=== PATIENT | male | born 1935 | race Caucasian/White ===

== ENCOUNTER → 2017-11-27 | Outpatient (CLI) | payer MEDICARE ==
--- NOTE | 2017-11-27 17:27 | XR ---
EXAMINATION TYPE: XR chest 2V DATE OF EXAM: 11/27/2017 COMPARISON: NONE INDICATION: Chronic obstructive pulmonary disease TECHNIQUE: Frontal and lateral views of the chest are obtained. FINDINGS: The heart size is normal. The pulmonary vasculature is normal. The lungs are clear. Pacemaker overlies left chest. IMPRESSION: 1. No acute pulmonary process.
== END | disposition home or self-care (01) ==
LOC: RADXRMAIN 11:53
PROVIDERS: ATTEND Family Medicine
DX: J44.1 Chronic obstructive pulmonary disease with (acute) exacerbation (principal)
CPT/HCPCS: 71046

== ENCOUNTER 2018-05-29 00:59 | Inpatient (IN) | payer MEDICARE ==
[2018-05-29] MEDS ORDERED: ACETAMINOPHEN TAB 325 MG TAB PO PRN (09:23)
[2018-05-29] MEDS ORDERED: ALPRAZolam 0.25 MG TAB PO PRN (11:45)
[2018-05-29 11:46] LABS: Basophils % (A) 0 %; Eosinophils % (A) 0 %; HCT 41.7 % (39.0-53.0); HGB 13.5 gm/dL (13.0-17.5); Lymphocytes # (A) 0.5 k/uL (1.0-4.8); Lymphocytes % (A) 9 %; MCH 31.5 pg (25.0-35.0); MCHC 32.3 g/dL (31.0-37.0); MCV 97.4 fL (80.0-100.0); Mean Platelet Volume 6.5; Monocytes # (A) 0.1 k/uL (0-1.0); Monocytes % (A) 1 %; Neutrophils # (A) 5.3 k/uL (1.3-7.7); Neutrophils % (A) 89 %; Platelet Count 302 k/uL (150-450); RBC 4.29 m/uL (4.30-5.90); RDW 14.8 % (11.5-15.5); WBC 5.9 k/uL (3.8-10.6)
[2018-05-29 12:08] LABS: Calcium 8.9 mg/dL (8.4-10.2); Potassium 3.8 mmol/L (3.5-5.1); Total Bilirubin 0.6 mg/dL (0.2-1.3); Total Protein 7.6 g/dL (6.3-8.2)
[2018-05-29 12:40] LABS: Cholesterol 171 mg/dL (<200); HDL Cholesterol 43 mg/dL (40-60); LDL Cholesterol,Calculated 113 mg/dL (0-99); Triglycerides 75 mg/dL (<150)
[2018-05-29] MEDS: LISINOPRIL 20 MG TAB PO SCH ×2 (12:51→19:30)
[2018-05-29] MEDS: amLODIPine 10 MG TAB PO SCH (12:51)
[2018-05-29] MEDS: FUROSEMIDE 10 MG/ML 2 ML VIAL IV SCH ×2 (12:51→19:30)
[2018-05-29] MEDS: ALLOPURINOL 100 MG TAB PO SCH (12:51)
--- NOTE | 2018-05-29 13:38 | CONS ---
CONSULTATION Mr. Armijo is an 82-year-old male followed by Dr. Balbuena, has a history of coronary artery disease, status post bypass grafting about 15 years ago, history of permanent pacemaker implantation for bradycardia, who presented to the emergency room at [facility] with progressive dyspnea. He is having those symptoms for the last few months, but much worse yesterday. He had no associated rest dyspnea or PND orthopnea. He denies any weight gain. He denies any chest discomfort. He denies any dizziness, palpitation, or syncope. He has not noted any significant peripheral edema. He has been diagnosed with bronchitis in the past. He has occasional cough, that is not persistent, has no wheezing. He has no history of smoking in a long time. He has not been told that he has heart failure in the past nor history of congestive heart failure. He has no history of myocardial infarction and his bypass was done because of symptoms of angina pectoris. Prior to the bypass, he has underwent stenting, but because of restenosis, he underwent a triple bypass at [facility]. His coronary risk factors are positive for hypertension, hyperlipidemia. He is nondiabetic, nonsmoker . MEDICATIONS: His medications include pravastatin 40 mg daily, Proscar 5 mg daily, aspirin once a day, Coreg 12.5 mg twice a day, amlodipine 10 mg daily, lisinopril 20 mg twice a day. REVIEW OF SYSTEMS: RESPIRATORY SYSTEM: He has dyspnea, cough. He was told he has chronic bronchitis in the past, but no recent wheezing. GI SYSTEM: No recent GI bleeding. No peptic ulcer disease. SYSTEM: No dysuria or hematuria. NERVOUS SYSTEM: No stroke or seizure. PHYSICAL EXAMINATION: He is an 82-year-old male, alert, oriented, in no apparent distress. Blood pressure 161/80 with the heart rate in the 60s. HEAD: Normocephalic. EYES: Sclerae anicteric. NECK: Good upstroke. No bruit. LUNGS: No wheezes or rales appreciated. HEART: Regular rate and rhythm. S1, S2. No S3 with systolic murmur heard at the base, ejection type. No diastolic murmur. No rub. ABDOMEN: Soft, nontender. Positive bowel sounds. No organomegaly. EXTREMITIES: Trace edema more on the left ankle. LAB DATA: Lab data revealed a hemoglobin 13.5, BUN and creatinine of 22 and 1.0. His NT proBNP is 4210. He had an EKG that showed a sinus mechanism, first-degree AV block, T-wave inversion in V1 and V2 with nonspecific ST-T wave changes and frequent PACs. His troponin at [place] was 0.074 and 0.049. IMPRESSION: 1. Symptoms of progressive dyspnea with findings suggestive of congestive heart failure. On examination, I do not hear significant fluid. He has no significant peripheral edema. According to him, he feels much better since his presentation to the emergency room. 2. History of coronary artery disease, status post coronary artery bypass grafting. 3. Mild elevation of troponin could represent a type 2 event. 4. History of hypertension. 5. Hyperlipidemia. RECOMMENDATION: Patient will be continued on IV diuretics. I will obtain echocardiogram with Doppler. We will follow his cardiac enzymes. Depending on the results of testing, further recommendation will be made. Patient may benefit from a myocardial perfusion imaging, but the timing depends on his progress and results of his testing. Thank you for this consult. We will follow with you. MMODL / IJN: [id number] /
--- NOTE | 2018-05-29 14:11 | P.HPIM ---
History of Present Illness H&P Date: 05/29/18 Chief Complaint: Shortness of breath This is a 82-year-old male, patient of Dr. Azul. He has a known past medical history of coronary artery disease with previous triple bypass surgery about 15 years ago, essential hypertension, hyperlipidemia, pacemaker placement for bradycardia. Patient presents to the emergency room with complaints of worsening shortness of breath. He initially had been seen by his PCP earlier this week and was told to follow-up with pulmonary service in regards to his increase in shortness of breath and thought that it may be related to chronic bronchitis. Patient does have a history of smoking and had quit several years ago. However, patient's symptoms continued to worsen. He noticed he was having difficulty walking to the mailbox. And then even during the night getting up to the bathroom and acute short of breath. Patient did have evidence of some orthopnea. He required more pillows at night to sleep. He denies any weight gain or lower extremity edema. Denies any history of CHF. Patient did go to [facility] yesterday and was brought over to [place] for further evaluation. At that point he was told that he had some congestive heart failure. BNP elevated at 4210. Patient is been started on IV Lasix. Chest x-ray and echo have been ordered. Cardiology has been consulted. Patient denies any chest pain. Denies any nausea vomiting. Denies any bowel movement changes or urinary symptoms. Denies any persistent cough. Denies fever or chills or sweats. Review of Systems Please refer to HPI otherwise unremarkable Past Medical History Past Medical History: Coronary Artery Disease (CAD), Hyperlipidemia, Hypertension, Prostate Disorder Additional Past Medical History / Comment(s): Thoracic aortic aneurysm and abdominal aortic aneurysm followed by Dr. leija. Has ultrasound completed every 6 months. Patient reports size to be around 4 cm History of Any Multi-Drug Resistant Organisms: None Reported Past Surgical History: Appendectomy, Coronary Bypass/CABG, Heart Catheterization With Stent, Pacemaker Additional Past Surgical History / Comment(s): CABG 2002 Past Anesthesia/Blood Transfusion Reactions: No Reported Reaction Date of Last Stent Placement:: unknown Type of Cardiac Device: Permanent Pacemaker Device Placement Date:: 2015 Past Psychological History: No Psychological Hx Reported Smoking Status: Former smoker Additional Drug Use History / Comment(s): quit smoking 20 years ago, smoked 1-2 PPD - Past Family History Father Family Medical History: CVA/TIA Mother Family Medical History: Osteoarthritis (OA) Medications and Allergies Home Medications Medication Instructions Recorded Confirmed Type Allopurinol [Zyloprim] 50 mg PO HS 05/29/18 05/29/18 History Aspirin 162 mg PO HS 05/29/18 05/29/18 History Carvedilol [Coreg*] 12.5 mg PO BID 05/29/18 05/29/18 History Finasteride [Proscar] 5 mg PO HS 05/29/18 05/29/18 History Lisinopril [Zestril] 20 mg PO BID 05/29/18 05/29/18 History [place]-3 Fatty Acids/Fish Oil [Fish 1 cap PO DAILY 05/29/18 05/29/18 History Oil 1,000 mg Softgel] Pravastatin Sodium [Pravachol] 40 mg PO HS 05/29/18 05/29/18 History amLODIPine [Norvasc] 10 mg PO DAILY 05/29/18 05/29/18 History Allergies Allergy/AdvReac Type Severity Reaction Status Date / Time No Known Allergies Allergy Verified 05/29/18 09:17 Physical Exam Vitals: Vital Signs Temp Pulse Resp BP Pulse Ox 05/29/18 10:15 97.0 F L 65 18 161/84 98 Intake and Output 05/28/18 05/29/18 05/29/18 22:59 06:59 14:59 Intake Total 120 Balance 120 Intake: Oral 120 Other: Weight 96.615 kg 96.615 kg Head normocephalic Neck supple Lungs diminished bilaterally Heart regular rate and rhythm S1-S2, no rub or gallop Abdomen is soft nontender nondistended positive bowel sounds no hepatosplenomegaly Extremities no edema Neuro alert and orientated to 3 Results CBC & Chem 7: 05/29/18 11:35 05/29/18 11:35 Labs: Abnormal Lab Results - Last 24 Hours (Table) 05/29/18 05/29/18 05/29/18 Range/Units 11:35 11:35 11:35 RBC 4.29 L (4.30-5.90) m/uL Lymphocytes # 0.5 L (1.0-4.8) k/uL Carbon Dioxide 20 L (22-30) mmol/L BUN 22 H (9-20) mg/dL Glucose 235 H (74-99) mg/dL Troponin I (0.000-0.034) ng/mL LDL Cholesterol, Calc 113 H (0-99) mg/dL 05/29/18 Range/Units 11:35 RBC (4.30-5.90) m/uL Lymphocytes # (1.0-4.8) k/uL Carbon Dioxide (22-30) mmol/L BUN (9-20) mg/dL Glucose (74-99) mg/dL Troponin I 0.093 H* (0.000-0.034) ng/mL LDL Cholesterol, Calc (0-99) mg/dL Thrombosis Risk Factor Assmnt - Choose All That Apply Each Risk Factor Represents 3 Points: Age 75 years or older Thrombosis Risk Factor Assessment Total Risk Factor Score: 3 Thrombosis Risk Factor Assessment Level: Moderate Risk Assessment and Plan Assessment: 1. Acute congestive heart failure exacerbation: Continue with IV Lasix 20 mg every 12 hours. Elevated BNP on admission. Patient seen by cardiology. Echo and chest x-ray have been ordered. 2. Mildly elevated troponins could represent a type II event per cardiology. Continue to monitor troponins 3. Essential hypertension 4. Hyperlipidemia 5. Previous history of smoking 6. Coronary artery disease with coronary artery bypass grafting GI prophylaxis Pepcid and DVT prophylaxis Lovenox Time with Patient: Greater than 30 (Greater than 60% of the total time spent in counseling and coordination of care.I performed an examination of the patient and discussed their management with the physician Collar Pointer. I have reviewed the Physician Collar Pointer's notes and agree with the documented findings and plan of care)
--- NOTE | 2018-05-29 15:04 | XR ---
EXAMINATION TYPE: XR chest 2V DATE OF EXAM: 05/29/2018 COMPARISON: 11/27/2017 HISTORY: Shortness of breath TECHNIQUE: Frontal and lateral views of the chest are obtained. FINDINGS: Scattered senescent parenchymal changes noted. Hyperinflation compatible with COPD. No evidence for infiltrate. No evidence for atelectasis. Heart size is stable. Mediastinal structures are stable and grossly unremarkable. No evidence for hilar prominence. Degenerative changes dorsal spine. IMPRESSION: 1. No evidence for acute pulmonary disease.
[2018-05-29] MEDS: CARVEDILOL 12.5 MG TAB PO SCH (17:28)
[2018-05-29] MEDS: ENOXAPARIN 40 MG/0.4 ML SYRINGE SQ SCH (17:28)
[2018-05-29] MEDS ORDERED: FINASTERIDE 5 MG TAB PO SCH (21:00)
[2018-05-29] MEDS ORDERED: PRAVASTATIN SODIUM 40 MG TAB PO SCH (21:00)
[2018-05-29] MEDS ORDERED: ALLOPURINOL 100 MG TAB PO SCH (21:00)
[2018-05-29] MEDS ORDERED: ASPIRIN 81 MG PO SCH (21:00)
[2018-05-30 05:04] LABS: Basophils % (A) 0 %; Eosinophils % (A) 0 %; HCT 39.6 % (39.0-53.0); HGB 12.7 gm/dL (13.0-17.5); Lymphocytes # (A) 0.7 k/uL (1.0-4.8); Lymphocytes % (A) 7 %; MCH 31.2 pg (25.0-35.0); MCHC 32.1 g/dL (31.0-37.0); MCV 97.3 fL (80.0-100.0); Mean Platelet Volume 6.2; Monocytes # (A) 0.4 k/uL (0-1.0); Monocytes % (A) 5 %; Neutrophils # (A) 8.3 k/uL (1.3-7.7); Neutrophils % (A) 87 %; Platelet Count 298 k/uL (150-450); RBC 4.07 m/uL (4.30-5.90); RDW 14.5 % (11.5-15.5); WBC 9.5 k/uL (3.8-10.6)
[2018-05-30 05:14] LABS: Albumin 3.6 g/dL (3.5-5.0); Calcium 8.5 mg/dL (8.4-10.2); Potassium 4.1 mmol/L (3.5-5.1); Total Bilirubin 0.4 mg/dL (0.2-1.3); Total Protein 6.9 g/dL (6.3-8.2)
[2018-05-30 08:18] VITALS: RESP 16
[2018-05-30] MEDS: LISINOPRIL 20 MG TAB PO SCH (08:20)
[2018-05-30] MEDS: amLODIPine 10 MG TAB PO SCH (08:20)
[2018-05-30] MEDS: ENOXAPARIN 40 MG/0.4 ML SYRINGE SQ SCH (08:20)
[2018-05-30] MEDS: FUROSEMIDE 10 MG/ML 2 ML VIAL IV SCH (08:20)
[2018-05-30] MEDS: ALLOPURINOL 100 MG TAB PO SCH (08:21)
[2018-05-30] MEDS ORDERED: FAMOTIDINE 20 MG TAB PO SCH (09:00)
[2018-05-30] MEDS ORDERED: NON-FORMULARY DRUG (Omega-3 Fatty Acids/Fish Oil [Fish Oil 1,000 Mg Softgel] 1 CAP) PO SCH (09:00)
--- NOTE | 2018-05-30 09:28 | ECHOF ---
Referral Reason:chf MEASUREMENTS -------- HEIGHT: 180.3 cm WEIGHT: 96.6 kg BP: 161/84 RVIDd: 3.5 cm (< 3.3) IVSd: 1.3 cm (0.6 - 1.1) LVIDd: 5.1 cm (3.9 - 5.3) LVPWd: 1.3 cm (0.6 - 1.1) IVSs: 2.0 cm LVIDs: 3.3 cm LVPWs: 1.6 cm LA Diam: 4.3 cm (2.7 - 3.8) LAESV Index (A-L): 30.63 ml/m Ao Diam: 3.9 cm (2.0 - 3.7) AV Cusp: 2.6 cm (1.5 - 2.6) MV EXCURSION: 20.282 mm (> 18.000) MV EF SLOPE: 103 mm/s (70 - 150) EPSS: 0.6 cm RAP: 5.00 mmHg RVSP: 21.84 mmHg FINDINGS -------- Paced rhythm. This was a technically adequate study. The left ventricular size is normal. There is mild concentric left ventricular hypertrophy. Overa ll left ventricular systolic function is normal with, an EF between 55 - 60 %. The right ventricle is mildly enlarged. LA is midly dilated 29-33ml/m2. The right atrium is normal in size. There is mild aortic valve sclerosis. Mild mitral annular calcification present. There is trace to mild mitral regurgitation. Mild tricuspid regurgitation present. Right ventricular systolic pressure is normal at < 35 mmHg. Moderate pulmonic regurgitation. The aortic root is dilated measuring 3.9cm. Normal inferior vena cava with normal inspiratory collapse consistent with estimated right atrial pre ssure of 5 mmHg. There is no pericardial effusion. CONCLUSIONS -------- 1. Paced rhythm. 2. This was a technically adequate study. 3. The left ventricular size is normal. 4. There is mild concentric left ventricular hypertrophy. 5. Overall left ventricular systolic function is normal with, an EF between 55 - 60 %. 6. The right ventricle is mildly enlarged. 7. LA is midly dilated 29-33ml/m2. 8. The right atrium is normal in size. 9. There is mild aortic valve sclerosis. 10. Mild mitral annular calcification present. 11. There is trace to mild mitral regurgitation. 12. Mild tricuspid regurgitation present. 13. Right ventricular systolic pressure is normal at < 35 mmHg. 14. Moderate pulmonic regurgitation. 15. The aortic root is dilated measuring 3.9cm. 16. Normal inferior vena cava with normal inspiratory collapse consistent with estimated right atrial pressure of 5 mmHg. 17. There is no pericardial effusion. REGULATORY AUDITOR: Aga Radford RDCS
[2018-05-30] MEDS: CARVEDILOL 12.5 MG TAB PO SCH ×2 (10:15→11:58)
[2018-05-30 11:54] VITALS: PULSE 82; TEMP 96.8
--- NOTE | 2018-05-30 12:10 | PN ---
PROGRESS NOTE Mr. Armijo is an 82-year-old male with a known history of coronary artery disease, status post coronary artery bypass grafting who presented with symptoms of progressive dyspnea and had an elevation of the BNP. He is feeling much better today, his breathing is better. He has been walking without difficulty. He had an echocardiogram revealed preserved left ventricular size and systolic function with no significant valvular disease. He denies any palpitation. No syncope. He continues to be on amlodipine 10 mg daily, aspirin once a day, Coreg 12.5 mg twice a day, furosemide 20 mg IV q.12 hours and Zestril 20 mg twice a day, pravastatin 40 mg daily. PHYSICAL EXAMINATION: Blood pressure running in the 130s with a heart rate in the 70s. LUNGS: Clear. HEART: Regular rate and rhythm. S1, S2. No S3. No rub with a systolic murmur. ABDOMEN: Soft, nontender. EXTREMITIES: No edema. LAB DATA: Revealed BUN and creatinine 34 and 1.21, potassium 4.1, hemoglobin 12.7. IMPRESSION: 1. Episode of congestive heart failure with preserved systolic function. 2. Status post coronary artery bypass grafting. 3. Hypertension. 4. Hyperlipidemia. RECOMMENDATION: From the cardiac standpoint, he should be able to be discharged home today. I will switch him to oral diuretics. He is anxious to go home because of the graduation of his granddaughter. He will follow up with Dr. Balbuena in a week. MMADILIAL / ANGELN: [id number] /
[2018-05-30 12:47] VITALS: BP 174/81
--- NOTE | 2018-05-30 13:26 | P.DS ---
Providers Date of admission: 05/29/18 01:30 Expected date of discharge: 05/30/18 Attending physician: Fernandez Benjamin Consults: 05/29/18 09:26 Consult Physician Routine Consulting Provider: Vin Daily Consult Reason/Comments: New onset CHF Do you want consulting provider notified?: Yes Primary care physician: Belen Azul Hospital Course: Discharge diagnosis 1. Acute diastolic congestive heart failure exacerbation: Elevated BNP on admission. Patient seen by cardiology. Echo showing an EF of 55-60% moderate pulmonary regurgitation. Chest x-ray no acute pulmonary process. Cardiology has switch patient over to oral Lasix 20 mg twice a day 2. Mildly elevated troponins could represent a type II event per cardiology. 3. Essential hypertension 4. Hyperlipidemia 5. Previous history of smoking 6. Coronary artery disease with coronary artery bypass grafting Hospital course This is a 82-year-old male, patient of Dr. Azul. He has a known past medical history of coronary artery disease with previous triple bypass surgery about 15 years ago, essential hypertension, hyperlipidemia, pacemaker placement for bradycardia. Patient presents to the emergency room with complaints of worsening shortness of breath. He initially had been seen by his PCP earlier this week and was told to follow-up with pulmonary service in regards to his increase in shortness of breath and thought that it may be related to chronic bronchitis. Patient does have a history of smoking and had quit several years ago. However, patient's symptoms continued to worsen. He noticed he was having difficulty walking to the mailbox. And then even during the night getting up to the bathroom and acute short of breath. Patient did have evidence of some orthopnea. He required more pillows at night to sleep. He denies any weight gain or lower extremity edema. Denies any history of CHF. Patient did go to [facility] yesterday and was brought over to [place] for further evaluation. At that point he was told that he had some congestive heart failure. BNP elevated at 4210. Patient is been started on IV Lasix. Chest x-ray and echo have been ordered. Cardiology has been consulted. Patient denies any chest pain. Denies any nausea vomiting. Denies any bowel movement changes or urinary symptoms. Denies any persistent cough. Denies fever or chills or sweats. Patient's shortness of breath has improved. He is off of oxygen. He has been up and walking the hallways with no shortness of breath. Symptoms improved with the IV Lasix. As stated above echo showed an EF of 55-60%. And cardiology has cleared him for discharge and place him on oral Lasix 20 mg twice a day. Patient follow-up with Dr. Balbuena in 1 week. Follow up with his PCP in 1 week. He is medically stable for discharge. Please refer to chart for any further details. I performed an examination of the patient and discussed their management with the physician Global Manager. I have reviewed the Physician Global Manager's notes and agree with the documented findings and plan of care Plan - Discharge Summary Discharge Rx Participant: No New Discharge Prescriptions: New Furosemide [Lasix] 20 mg PO BID #60 tab Continue Carvedilol [Coreg*] 12.5 mg PO BID Aspirin 162 mg PO HS Allopurinol [Zyloprim] 50 mg PO HS amLODIPine [Norvasc] 10 mg PO DAILY Pravastatin Sodium [Pravachol] 40 mg PO HS Lisinopril [Zestril] 20 mg PO BID Finasteride [Proscar] 5 mg PO HS [place]-3 Fatty Acids/Fish Oil [Fish Oil 1,000 mg Softgel] 1 cap PO DAILY Discharge Medication List Allopurinol [Zyloprim] 50 mg PO HS 05/29/18 [History] Aspirin 162 mg PO HS 05/29/18 [History] Carvedilol [Coreg*] 12.5 mg PO BID 05/29/18 [History] Finasteride [Proscar] 5 mg PO HS 05/29/18 [History] Lisinopril [Zestril] 20 mg PO BID 05/29/18 [History] [place]-3 Fatty Acids/Fish Oil [Fish Oil 1,000 mg Softgel] 1 cap PO DAILY [History] Pravastatin Sodium [Pravachol] 40 mg PO HS 05/29/18 [History] amLODIPine [Norvasc] 10 mg PO DAILY 05/29/18 [History] Furosemide [Lasix] 20 mg PO BID #60 tab 05/30/18 [Rx] Follow up Appointment(s)/Referral(s): Andre Balbuena MD [STAFF PHYSICIAN] - 1 Week Belen Azul MD [Primary Care Provider] - 06/05/18 2:15 pm () Activity/Diet/Wound Care/Special Instructions: Diet: cardiac Activity: as tolerated Discharge Disposition: HOME SELF-CARE
[2018-05-30 13:40] VITALS: BMI 29.0
--- NOTE | 2018-05-30 13:43 | CDI ---
Last Revision, October 2017 Documentation Clarification Form Date: 05/30/2018 12:00:00 AM From: Emily Infante RN, CCDS Admit Date: 05/29/2018 1:30:00 AM Patient Name: Landon Armijo Visit Number: [id number] Discharge Date: ATTENTION: The Clinical Documentation Specialists (CDI) and [facility] Coding Staff appreciate your assistance in clarifying documentation. Please respond to the clarification below the line at the bottom and electronically sign. The CDI & [facility] Coding staff will review the response and follow-up if needed. Please note: Queries are made part of the Legal Health Record. If you have any questions, please contact the author of this message via ITS. Dr. Hellen Brown Mild elevation of troponin could represent a type 2 event is documented in your consult on 05/29/18. Patient history/risk factors: Coronary artery disease, Hypertension, Hyperlipidemia Clinical Indicators: He complains of progressive dyspnea with cough. Lab findings: Troponin 0.074, 0.049, BNP 4210 EKG: sinus mechanism, first-degree AV block, T-wave inversion in V1 and V2 with nonspecific ST-T wave changes and frequent PAC's ECHO: EF 55-60 % Vital Signs: 161/84 65 18 97.0 98 % 2/L Treatment: Monitor cardiac enzymes Lasix IV Coreg PO In your professional opinion, can you please further clarify type II event and underlying cause? X Type II Myocardial Infarction Other, please specify Unable to determine Please continue to document in your progress notes and discharge summary in order to capture severity of illness and risk of mortality. Include clinical findings that support your diagnosis. MTDD
[2018-05-30] MEDS ORDERED: FUROSEMIDE 20 MG TAB PO SCH (21:00)
== END 2018-05-30 14:35 | disposition home or self-care (01) | DRG 282 ==
LOC: EC 00:59 → 6SEL 01:30
PROVIDERS: ADMIT Internal Medicine; ATTEND Internal Medicine
DX: I11.0 Hypertensive heart disease with heart failure (principal); I21.A1 Myocardial infarction type 2; I50.33 Acute on chronic diastolic (congestive) heart failure; E78.5 Hyperlipidemia, unspecified; I25.10 Atherosclerotic heart disease of native coronary artery without angina pectoris; I37.1 Nonrheumatic pulmonary valve insufficiency; Z95.1 Presence of aortocoronary bypass graft; Z95.0 Presence of cardiac pacemaker; Z79.82 Long term (current) use of aspirin; Z79.899 Other long term (current) drug therapy; Z87.891 Personal history of nicotine dependence
CPT/HCPCS: 71046; 80053; 80061; 83880; 84484; 85025; 93306; 99285

== ENCOUNTER → 2018-09-19 | Day surgery (SDC) | payer MEDICARE ==
[2018-09-16 15:42] VITALS: BMI 26.0
[~2018-09-19] MED LIST: ALPRAZolam 0.25 MG TAB PO PRN; ALPRAZolam 0.5 MG TAB PO PRN; ASPIRIN 325 MG TAB PO STA; ATORVASTATIN 80 MG TAB PO STA; IOPAMIDOL-370 125ML BTL INJ ONE; IV FLUID CONTINUATION 950 ML IV ONE; LIDOCAINE 1% INJ 10MG/ML (20 ML MDV) ONE; LIDOCAINE 1% INJ 10MG/ML (20 ML MDV) SQ ONE; MIDAZOLAM 2 MG/2 ML VIAL ONE; NITROGLYCERIN SL TABS 0.4 MG TAB SUBLINGUAL PRN; RX INFO: IV CONTRAST WAS GIVEN 1 EACH MISC MISCELLANE PRN; SODIUM CHLORIDE 0.9% 1,000 ML IV SCH; SODIUM CHLORIDE 0.9% 1,000 ML in EMPTY BAG 1 BAG IV ONE; amLODIPine 2.5 MG TAB PO STA; fentaNYL (PF) 50 MCG/ML 2 ML AMP IV ONE; fentaNYL (PF) 50 MCG/ML 2 ML AMP ONE
[2018-09-19 08:44] VITALS: TEMP 98.3
[2018-09-19] MEDS: MIDAZOLAM 2 MG/2 ML VIAL IVP ONE ×2 (09:27→09:58)
--- NOTE | 2018-09-19 10:41 | P.CARDCATH ---
Date of Procedure: 09/19/18 Preoperative Diagnosis: Positive stress test and episodes of nonsustained V. tach Postoperative Diagnosis: Stable coronary artery disease with patent BLOOD to the LAD and vein graft to the circumflex. Right coronary artery is chronically occluded with documented occlusion of the graft to the RCA Description of Procedure: HISTORY: This is a 82-year-old gentleman with history of venous bypass surgery with the BLOOD graft to the LAD, vein graft to the circumflex and vein graft to the right coronary artery. This patient is being followed by Dr. Balbuena. Patient apparently had episodes of nonsustained V. tach and a recent stress test showed some ischemia in the apical region. Patient is advised to have a cardiac catheterization CONSENT:I have discussed the risks, benefits and alternative therapies for the above-mentioned procedure and for both sedation/analgesia as well as necessary blood product administration, if indicated, as they pertain to this patient. The patient has indicated understanding and acceptance of the risks and procedures discussed. PROCEDURE: Patient was brought to the lab in a fasting state. Patient was given some IV sedation. The right groin is infiltrated with lidocaine and right femoral artery was entered using Seldinger technique. A 6-[place]ron[place] catheter was left in place and selective coronary arteriography and left ventriculography was performed. Patient tolerated the procedure well. Femoral angiogram was performed and Angio-Seal was applied for hemostasis. No immediate complications were noted and patient was transferred to [facility] in a stable condition Conscious Sedation: Versed 1.5mg Fentanyl 50 g Duration 25minutes HEMODYNAMICS: The aortic pressure was about 150/70. Left ankle end-diastolic pressure is about a 4-8. There was no gradient across the aortic valve SELECTIVE CORONARY ARTERIOGRAPHY: LEFT MAIN: The left main is a normal length without any Sigmund obstructive disease. There is calcification noted THE LEFT ANTERIOR DESCENDING CORONARY ARTERY:. This is totally occluded in the midportion THE LEFT CIRCUMFLEX AND IS CORONARY ARTERY:. This is a moderate caliber vessel giving rise good-sized OM branch. The OM branch has about 70-80% stenosis. There are collaterals from the distal circumflex to the right coronary artery THE RIGHT CORONARY ARTERY: This is totally occluded in the midportion. There is an acute marginal branch which has about 95% stenosis at the ostium and distal RCA is filled by collaterals from the circumflex system. The THE BLOOD GRAFT TO THE LAD: This is patent throat its length and also the distal anastomosis. The LAD beyond the insertion site appears to be patent and hasn't shown any changes compared to the previous study THE VEIN GRAFT TO THE CIRCUMFLEX: This is patent at the proximal and distal anastomosis. There appears to be some mild stenosis of the distal anastomotic site. The OM branch, beyond the anastomotic site appears to be good in caliber and free of any occlusive disease. FINAL IMPRESSION: Stable coronary artery disease compared to the previous study with patent BLOOD graft to LAD and vein graft to the OM branch. There is total occlusion of the mid LAD and total occlusion of the distal RCA. There are collaterals from the circumflex to the distal RCA. PLAN: Continued medical therapy and follow-up with Dr. Balbuena PROGNOSIS: Fair
[2018-09-19] MEDS: LISINOPRIL 20 MG TAB PO STA ×2 (13:01→13:03)
[2018-09-19 14:05] VITALS: RESP 20
[2018-09-19 17:44] VITALS: BP 165/77; PULSE 92
== END | disposition home or self-care (01) ==
LOC: CATHCVL 08:03
PROVIDERS: ATTEND Internal Medicine Cardiovascular Disease
DX: I25.10 Atherosclerotic heart disease of native coronary artery without angina pectoris (principal); I47.2 Ventricular tachycardia; I10 Essential (primary) hypertension; I25.82 Chronic total occlusion of coronary artery; E78.00 Pure hypercholesterolemia, unspecified; E78.5 Hyperlipidemia, unspecified; R42 Dizziness and giddiness; I95.2 Hypotension due to drugs; I25.2 Old myocardial infarction; Z79.899 Other long term (current) drug therapy; Z79.82 Long term (current) use of aspirin; Z95.1 Presence of aortocoronary bypass graft; Z82.49 Family history of ischemic heart disease and other diseases of the circulatory system
CPT/HCPCS: 93459; C1769 ×3; C1894; J2250; J2001; J3010; Q9967

== ENCOUNTER → 2019-02-19 | Outpatient (CLI) | payer MEDICARE ==
--- NOTE | 2019-02-19 18:06 | CT ---
EXAMINATION TYPE: CT lumbar spine w con DATE OF EXAM: 02/19/2019 COMPARISON: 10/15/2011 HISTORY: Low back and left leg pain. CT DLP: 1030.4 mGycm Automated exposure control for dose reduction was used. CONTRAST: CT scan of the lumbar is performed with IV Contrast, patient injected with 80ml mL of Isovue 300. Enhanced CT of the lumbar spine was performed. Bone and soft tissue window settings are submitted as well as coronal and sagittal reconstructions. Lumbar vertebra have normal alignment. There is disc space narrowing at L3-4 L4-5 with formation. The re is no compression fracture. Sacroiliac joints are intact. I see no bony destructive process. There is 5.5 cm fusiform aneurysm of the lower abdominal aorta. Aneurysm measures 8.1 cm in length. There is no lumbar paraspinal mass. I see no focal bone destruction. IMPRESSION: Multilevel spondylotic changes. No fracture. Abdominal aortic aneurysm. Aneurysm is increased from 4 cm in diameter on the old CT scan of 10/15/2011. There is no adverse change in the lumbar spine.
== END ==
LOC: RADCTMAIN 16:14
PROVIDERS: ATTEND Family Medicine
DX: M47.27 Other spondylosis with radiculopathy, lumbosacral region (principal)
CPT/HCPCS: 82565; 84520; 72132; 36415; Q9967

== ENCOUNTER 2019-05-22 13:47 | Emergency (ER) | payer MEDICARE ==
[2019-05-22 13:56] VITALS: RESP 18
[2019-05-22] MEDS ORDERED: SODIUM CHLORIDE 0.9% 1,000 ML IV STA (15:03)
[2019-05-22] MEDS ORDERED: SODIUM CHLORIDE 0.9% 500 ML 500 ML IV STA ×2 (15:03→17:00)
[2019-05-22] MEDS ORDERED: ALBUTEROL NEBULIZED (CONC) 5 MG, SODIUM CHLORIDE 0.9% NEBULIZ 3 ML INHALATION STA ×10 (15:04→15:43)
[2019-05-22] MEDS ORDERED: FUROSEMIDE 10 MG/ML 4 ML VIAL IV STA (15:04)
[2019-05-22] MEDS ORDERED: DEXTROSE 50% SYRINGE 50 ML IVP STA (15:10)
[2019-05-22] MEDS ORDERED: INSULIN REGULAR 100 UNIT/ML VIAL IV ONE (15:11)
--- NOTE | 2019-05-22 15:20 | ED ---
Recheck HPI - General Chief Complaint: Recheck/Abnormal Lab/Rx Stated Complaint: high potassium, sent by [facility] Time Seen by Provider: 05/22/19 14:39 Source: patient, RN notes reviewed Mode of arrival: EMS Limitations: no limitations - History of Present Illness Initial Comments: This 81-year-old male who was sent here from his doctor's office due to elevated potassium level. A blood draw done 2 days ago was 6. 2 repeat today was 6.0. He denies any palpitations a chest pain fevers chills nausea vomiting sweats. He states he does have some issues with her kidneys. No other symptomatology at this time. No other modifying factors. MD Complaint: abnormal lab - Related Data Home Medications Medication Instructions Recorded Confirmed Aspirin 81 mg PO HS 05/29/18 05/22/19 Lisinopril [Zestril] 20 mg PO BID 05/29/18 05/22/19 [place]-3 Fatty Acids/Fish Oil [Fish 1 cap PO HS 05/29/18 05/22/19 Oil 1,000 mg Softgel] Allopurinol [Zyloprim] 50 mg PO HS 09/16/18 05/22/19 Rosuvastatin [Crestor] 20 mg PO HS 09/16/18 05/22/19 Albuterol Nebulized [Ventolin 2.5 mg INHALATION RT-Q6H PRN 05/22/19 05/22/19 Nebulized] Propranolol HCl [Propranolol HCl 120 mg PO HS 05/22/19 05/22/19 ER] amLODIPine [Norvasc] 5 mg PO HS 05/22/19 05/22/19 Previous Rx's Medication Instructions Recorded Propranolol LA [Inderal LA] 160 mg PO DAILY #30 cap 05/22/19 Allergies Allergy/AdvReac Type Severity Reaction Status Date / Time No Known Allergies Allergy Verified 05/22/19 14:45 Review of Systems ROS Statement: Those systems with pertinent positive or pertinent negative responses have been documented in the HPI. ROS Other: All systems not noted in ROS Statement are negative. Past Medical History Past Medical History: Coronary Artery Disease (CAD), Hyperlipidemia, Hypertension, Prostate Disorder Additional Past Medical History / Comment(s): Thoracic aortic aneurysm and abdominal aortic aneurysm followed by Dr. leija. Has ultrasound completed every 6 months. Patient reports size to be around 4 cm; See DR Mitchell's H&P History of Any Multi-Drug Resistant Organisms: None Reported Past Surgical History: Appendectomy, Coronary Bypass/CABG, Heart Catheterization With Stent, Hernia Repair, Orthopedic Surgery, Pacemaker Additional Past Surgical History / Comment(s): CABG 2003; Fx ankle repair Past Anesthesia/Blood Transfusion Reactions: No Reported Reaction Date of Last Stent Placement:: unknown Type of Cardiac Device: Permanent Pacemaker Device Placement Date:: 2015 Past Psychological History: No Psychological Hx Reported Smoking Status: Former smoker Past Alcohol Use History: Occasional Past Drug Use History: None Reported - Past Family History Father Family Medical History: CVA/TIA Mother Family Medical History: Osteoarthritis (OA) General Exam - General Exam Comments Initial Comments: This is a well-developed well-nourished awake alert oriented 3 male Limitations: no limitations General appearance: alert, in no apparent distress Head exam: Present: atraumatic, normocephalic, normal inspection Eye exam: Present: normal appearance, PERRL, EOMI. Absent: scleral icterus, conjunctival injection, periorbital swelling ENT exam: Present: normal exam, mucous membranes moist Neck exam: Present: normal inspection. Absent: tenderness, meningismus, lymphadenopathy Respiratory exam: Present: normal lung sounds bilaterally. Absent: respiratory distress, wheezes, rales, rhonchi, stridor Cardiovascular Exam: Present: normal rhythm, bradycardia, normal heart sounds. Absent: systolic murmur, diastolic murmur, rubs, gallop, clicks GI/Abdominal exam: Present: soft, normal bowel sounds. Absent: distended, tenderness, guarding, rebound, rigid Extremities exam: Present: normal inspection, full ROM, normal capillary refill. Absent: tenderness, pedal edema, joint swelling, calf tenderness Back exam: Present: normal inspection Neurological exam: Present: alert, oriented X3, CN II-XII intact Psychiatric exam: Present: normal affect, normal mood Skin exam: Present: warm, dry, intact, normal color. Absent: rash Course Vital Signs 05/22/19 05/22/19 05/22/19 13:52 16:00 16:15 Temperature 98.0 F Pulse Rate 50 L 61 53 L Respiratory 18 Rate Blood Pressure 138/60 O2 Sat by Pulse 98 Oximetry 05/22/19 16:39 Temperature Pulse Rate 53 L Respiratory Rate Blood Pressure O2 Sat by Pulse Oximetry - Reevaluation(s) Reevaluation #1: 05/22/19 18:23 Patient did have a vasovagal episode was found have low blood sugar likely secondary to the insulin given earlier D50 and food intake. Reevaluation #2: 05/22/19 18:26 Repeat EKG was done at the time of the hypoglycemic episode of vasovagal episode and a pacemaker rhythm of 66 appear 306 QRS 140 QT since QTC 514/538 several episodes of bigeminy Reevaluation #3: 05/22/19 18:29 Patient did have a lunchroom monitor brief episode of bigeminy which did resolve quickly. This was during the hypoglycemic/vasovagal episode Medical Decision Making - Medical Decision Making I did discuss the findings with the patient has patient does demonstrate evidence of renal insufficiency secondary to diminished fluid intake. He was encouraged to increase oral fluids his potassium did come down nicely. I had discussed the case with Dr. Balbuena. Patient will be discharged with a decrease in his lisinopril to 20 mg a day in addition to be placed on propanolol LA 160 mg a day. He is follow-up Dr. Balbuena as well as with his doctor for recheck of the kidney function - Lab Data Result diagrams: 05/22/19 15:20 05/22/19 17:10 Lab Results 05/22/19 05/22/19 05/22/19 Range/Units 14:20 15:20 15:20 WBC 5.8 (3.8-10.6) k/uL RBC 3.75 L (4.30-5.90) m/uL Hgb 11.4 L (13.0-17.5) gm/dL Hct 36.3 L (39.0-53.0) % MCV 96.8 (80.0-100.0) fL MCH 30.5 (25.0-35.0) pg MCHC 31.5 (31.0-37.0) g/dL RDW 16.0 H (11.5-15.5) % Plt Count 259 (150-450) k/uL Neutrophils % 61 % Lymphocytes % 26 % Monocytes % 7 % Eosinophils % 3 % Basophils % 0 % Neutrophils # 3.5 (1.3-7.7) k/uL Lymphocytes # 1.5 (1.0-4.8) k/uL Monocytes # 0.4 (0-1.0) k/uL Eosinophils # 0.2 (0-0.7) k/uL Basophils # 0.0 (0-0.2) k/uL Sodium (137-145) mmol/L Potassium 6.0 H (3.5-5.1) mmol/L Chloride (98-107) mmol/L Carbon Dioxide (22-30) mmol/L Anion Gap mmol/L BUN (9-20) mg/dL Creatinine (0.66-1.25) mg/dL Est GFR (CKD-EPI)AfAm (>60 ml/min/1.73 sqM) Est GFR (CKD-EPI)NonAf (>60 ml/min/1.73 sqM) Glucose (74-99) mg/dL POC Glucose (mg/dL) (75-99) mg/dL POC Glu Member Certification Manager ID Calcium (8.4-10.2) mg/dL Magnesium (1.6-2.3) mg/dL Creatine Kinase (55-170) U/L Troponin I (0.000-0.034) ng/mL NT-Pro-B Natriuret Pep 656 pg/mL 05/22/19 05/22/19 05/22/19 Range/Units 15:20 15:20 17:10 WBC (3.8-10.6) k/uL RBC (4.30-5.90) m/uL Hgb (13.0-17.5) gm/dL Hct (39.0-53.0) % MCV (80.0-100.0) fL MCH (25.0-35.0) pg MCHC (31.0-37.0) g/dL RDW (11.5-15.5) % Plt Count (150-450) k/uL Neutrophils % % Lymphocytes % % Monocytes % % Eosinophils % % Basophils % % Neutrophils # (1.3-7.7) k/uL Lymphocytes # (1.0-4.8) k/uL Monocytes # (0-1.0) k/uL Eosinophils # (0-0.7) k/uL Basophils # (0-0.2) k/uL Sodium 138 (137-145) mmol/L Potassium 4.9 (3.5-5.1) mmol/L Chloride 104 (98-107) mmol/L Carbon Dioxide 21 L (22-30) mmol/L Anion Gap 13 mmol/L BUN 51 H (9-20) mg/dL Creatinine 2.14 H (0.66-1.25) mg/dL Est GFR (CKD-EPI)AfAm 32 (>60 ml/min/1.73 sqM) Est GFR (CKD-EPI)NonAf 28 (>60 ml/min/1.73 sqM) Glucose 46 L* (74-99) mg/dL POC Glucose (mg/dL) (75-99) mg/dL POC Glu Member Certification Manager ID Calcium 9.2 (8.4-10.2) mg/dL Magnesium 2.1 (1.6-2.3) mg/dL Creatine Kinase 25 L (55-170) U/L Troponin I <0.012 (0.000-0.034) ng/mL NT-Pro-B Natriuret Pep pg/mL 05/22/19 Range/Units 17:15 WBC (3.8-10.6) k/uL RBC (4.30-5.90) m/uL Hgb (13.0-17.5) gm/dL Hct (39.0-53.0) % MCV (80.0-100.0) fL MCH (25.0-35.0) pg MCHC (31.0-37.0) g/dL RDW (11.5-15.5) % Plt Count (150-450) k/uL Neutrophils % % Lymphocytes % % Monocytes % % Eosinophils % % Basophils % % Neutrophils # (1.3-7.7) k/uL Lymphocytes # (1.0-4.8) k/uL Monocytes # (0-1.0) k/uL Eosinophils # (0-0.7) k/uL Basophils # (0-0.2) k/uL Sodium (137-145) mmol/L Potassium (3.5-5.1) mmol/L Chloride (98-107) mmol/L Carbon Dioxide (22-30) mmol/L Anion Gap mmol/L BUN (9-20) mg/dL Creatinine (0.66-1.25) mg/dL Est GFR (CKD-EPI)AfAm (>60 ml/min/1.73 sqM) Est GFR (CKD-EPI)NonAf (>60 ml/min/1.73 sqM) Glucose (74-99) mg/dL POC Glucose (mg/dL) 57 L (75-99) mg/dL POC Glu Member Certification Manager ID Pb Cage Calcium (8.4-10.2) mg/dL Magnesium (1.6-2.3) mg/dL Creatine Kinase (55-170) U/L Troponin I (0.000-0.034) ng/mL NT-Pro-B Natriuret Pep pg/mL - EKG Data -: EKG Interpreted by Me (Atrial rhythm of 50. Interval 286 QRS of 98 QT since QTC 452/412 nonspecif) Disposition Clinical Impression: Hyperkalemia, Multiple episodes of hypoglycemia, Dehydration, Renal insufficiency Disposition: HOME SELF-CARE Condition: Good Instructions (If sedation given, give patient instructions): Hyperkalemia (ED), Acute Kidney Injury (DC), Non-diabetic Hypoglycemia (ED), Dehydration (ED) Additional Instructions: Decrease the lisinopril to 20 mg a day take the propranolol LA 160 mg once per day as directed Prescriptions: Propranolol LA [Inderal LA] 160 mg PO DAILY #30 cap Is patient prescribed a controlled substance at d/c from ED?: No Referrals: Belen Azul MD [Primary Care Provider] - 1-2 days Andre Balbuena MD [STAFF PHYSICIAN] - 1-2 days
[2019-05-22 15:28] LABS: Basophils % (A) 0 %; Eosinophils # (A) 0.2 k/uL (0-0.7); Eosinophils % (A) 3 %; HCT 36.3 % (39.0-53.0); HGB 11.4 gm/dL (13.0-17.5); Lymphocytes # (A) 1.5 k/uL (1.0-4.8); Lymphocytes % (A) 26 %; MCH 30.5 pg (25.0-35.0); MCHC 31.5 g/dL (31.0-37.0); MCV 96.8 fL (80.0-100.0); Mean Platelet Volume 6.7; Monocytes # (A) 0.4 k/uL (0-1.0); Monocytes % (A) 7 %; Neutrophils # (A) 3.5 k/uL (1.3-7.7); Neutrophils % (A) 61 %; Platelet Count 259 k/uL (150-450); RBC 3.75 m/uL (4.30-5.90); WBC 5.8 k/uL (3.8-10.6)
[2019-05-22 15:36] LABS: Magnesium 2.1 mg/dL (1.6-2.3)
[2019-05-22 17:20] LABS: Glucose,Whole Blood 57 mg/dL (75-99)
[2019-05-22 17:29] LABS: Calcium 9.2 mg/dL (8.4-10.2); Potassium 4.9 mmol/L (3.5-5.1)
[2019-05-22 18:25] LABS: Glucose,Whole Blood 374 mg/dL (75-99)
[2019-05-22 18:27] LABS: Glucose,Whole Blood 128 mg/dL (75-99)
--- NOTE | 2019-05-22 18:49 | ED ---
Medical Decision Making - Lab Data Result diagrams: 05/22/19 15:20 05/22/19 17:10 Lab Results 05/22/19 05/22/19 05/22/19 Range/Units 14:20 15:20 15:20 WBC 5.8 (3.8-10.6) k/uL RBC 3.75 L (4.30-5.90) m/uL Hgb 11.4 L (13.0-17.5) gm/dL Hct 36.3 L (39.0-53.0) % MCV 96.8 (80.0-100.0) fL MCH 30.5 (25.0-35.0) pg MCHC 31.5 (31.0-37.0) g/dL RDW 16.0 H (11.5-15.5) % Plt Count 259 (150-450) k/uL Neutrophils % 61 % Lymphocytes % 26 % Monocytes % 7 % Eosinophils % 3 % Basophils % 0 % Neutrophils # 3.5 (1.3-7.7) k/uL Lymphocytes # 1.5 (1.0-4.8) k/uL Monocytes # 0.4 (0-1.0) k/uL Eosinophils # 0.2 (0-0.7) k/uL Basophils # 0.0 (0-0.2) k/uL Sodium (137-145) mmol/L Potassium 6.0 H (3.5-5.1) mmol/L Chloride (98-107) mmol/L Carbon Dioxide (22-30) mmol/L Anion Gap mmol/L BUN (9-20) mg/dL Creatinine (0.66-1.25) mg/dL Est GFR (CKD-EPI)AfAm (>60 ml/min/1.73 sqM) Est GFR (CKD-EPI)NonAf (>60 ml/min/1.73 sqM) Glucose (74-99) mg/dL POC Glucose (mg/dL) (75-99) mg/dL POC Glu Fingerprint Classifier ID Calcium (8.4-10.2) mg/dL Magnesium (1.6-2.3) mg/dL Creatine Kinase (55-170) U/L Troponin I (0.000-0.034) ng/mL NT-Pro-B Natriuret Pep 656 pg/mL 05/22/19 05/22/19 05/22/19 Range/Units 15:20 15:20 17:10 WBC (3.8-10.6) k/uL RBC (4.30-5.90) m/uL Hgb (13.0-17.5) gm/dL Hct (39.0-53.0) % MCV (80.0-100.0) fL MCH (25.0-35.0) pg MCHC (31.0-37.0) g/dL RDW (11.5-15.5) % Plt Count (150-450) k/uL Neutrophils % % Lymphocytes % % Monocytes % % Eosinophils % % Basophils % % Neutrophils # (1.3-7.7) k/uL Lymphocytes # (1.0-4.8) k/uL Monocytes # (0-1.0) k/uL Eosinophils # (0-0.7) k/uL Basophils # (0-0.2) k/uL Sodium 138 (137-145) mmol/L Potassium 4.9 (3.5-5.1) mmol/L Chloride 104 (98-107) mmol/L Carbon Dioxide 21 L (22-30) mmol/L Anion Gap 13 mmol/L BUN 51 H (9-20) mg/dL Creatinine 2.14 H (0.66-1.25) mg/dL Est GFR (CKD-EPI)AfAm 32 (>60 ml/min/1.73 sqM) Est GFR (CKD-EPI)NonAf 28 (>60 ml/min/1.73 sqM) Glucose 46 L* (74-99) mg/dL POC Glucose (mg/dL) (75-99) mg/dL POC Glu Fingerprint Classifier ID Calcium 9.2 (8.4-10.2) mg/dL Magnesium 2.1 (1.6-2.3) mg/dL Creatine Kinase 25 L (55-170) U/L Troponin I <0.012 (0.000-0.034) ng/mL NT-Pro-B Natriuret Pep pg/mL 05/22/19 05/22/19 05/22/19 Range/Units 17:15 18:21 18:26 WBC (3.8-10.6) k/uL RBC (4.30-5.90) m/uL Hgb (13.0-17.5) gm/dL Hct (39.0-53.0) % MCV (80.0-100.0) fL MCH (25.0-35.0) pg MCHC (31.0-37.0) g/dL RDW (11.5-15.5) % Plt Count (150-450) k/uL Neutrophils % % Lymphocytes % % Monocytes % % Eosinophils % % Basophils % % Neutrophils # (1.3-7.7) k/uL Lymphocytes # (1.0-4.8) k/uL Monocytes # (0-1.0) k/uL Eosinophils # (0-0.7) k/uL Basophils # (0-0.2) k/uL Sodium (137-145) mmol/L Potassium (3.5-5.1) mmol/L Chloride (98-107) mmol/L Carbon Dioxide (22-30) mmol/L Anion Gap mmol/L BUN (9-20) mg/dL Creatinine (0.66-1.25) mg/dL Est GFR (CKD-EPI)AfAm (>60 ml/min/1.73 sqM) Est GFR (CKD-EPI)NonAf (>60 ml/min/1.73 sqM) Glucose (74-99) mg/dL POC Glucose (mg/dL) 57 L 374 H 128 H (75-99) mg/dL POC Glu Fingerprint Classifier Pb Larson Ariel Wallison, Jennifer Calcium (8.4-10.2) mg/dL Magnesium (1.6-2.3) mg/dL Creatine Kinase (55-170) U/L Troponin I (0.000-0.034) ng/mL NT-Pro-B Natriuret Pep pg/mL Disposition Clinical Impression: Hyperkalemia, Multiple episodes of hypoglycemia, Dehydration, Renal insufficiency Disposition: HOME SELF-CARE Condition: Good Instructions (If sedation given, give patient instructions): Dehydration (ED), Acute Kidney Injury (DC), Non-diabetic Hypoglycemia (ED), Hyperkalemia (ED) Additional Instructions: Decrease the lisinopril to 20 mg a day take the propranolol LA 160 mg once per day as directed. Also stop Norvasc Prescriptions: Propranolol LA [Inderal LA] 160 mg PO DAILY #30 cap Is patient prescribed a controlled substance at d/c from ED?: No Referrals: Andre Balbuena MD [STAFF PHYSICIAN] - 1-2 days Belen Azul MD [Primary Care Provider] - 1-2 days
[2019-05-22 19:08] VITALS: BP 158/76; PULSE 61; TEMP 98.2
== END 2019-05-22 19:03 | disposition home or self-care (01) ==
LOC: EC 13:47
DX: E87.5 Hyperkalemia (principal); E86.0 Dehydration; E16.2 Hypoglycemia, unspecified; N28.89 Other specified disorders of kidney and ureter; E78.5 Hyperlipidemia, unspecified; I10 Essential (primary) hypertension; I25.10 Atherosclerotic heart disease of native coronary artery without angina pectoris; Z87.891 Personal history of nicotine dependence; Z79.82 Long term (current) use of aspirin; Z79.899 Other long term (current) drug therapy; Z95.0 Presence of cardiac pacemaker; Z95.1 Presence of aortocoronary bypass graft; Z95.5 Presence of coronary angioplasty implant and graft
CPT/HCPCS: 36415; 94644; 93005; 83880; 80048; 82550; 83735; 84132; 84484; 85025; 99285; 96374; 96375; 96361 ×2; J1940

== ENCOUNTER → 2019-05-22 | Outpatient (CLI) | payer MEDICARE ==
--- NOTE | 2019-05-22 12:37 | XR ---
EXAMINATION TYPE: XR chest 2V DATE OF EXAM: 05/22/2019 COMPARISON: Prior chest x-ray 05/29/2018 HISTORY: Chronic cough, congestion TECHNIQUE: Frontal and lateral views of the chest are obtained. FINDINGS: Pacemaker is present in left pectoral region, there are leads in the right atrium and vent ricle as on prior. Patient is post median sternotomy. Increased lung volumes may be due to underlying COPD. There are coronary artery calcifications. There is no focal air space opacity, pleural effusio n, or pneumothorax seen. The cardiac silhouette size is within normal limits. The osseous structur es are intact. IMPRESSION: No acute cardiopulmonary process.
== END | disposition home or self-care (01) ==
LOC: RADXRMAIN 11:26
PROVIDERS: ATTEND Nurse Practitioner
DX: R05 Cough (principal); E87.5 Hyperkalemia
CPT/HCPCS: 36415; 71046; 84132